=== PATIENT | male | born 1980 | race Caucasian/White ===

== ENCOUNTER → 2020-05-21 | Outpatient (CLI) | payer BC | LOC: LAB 11:45 | PROVIDERS: ATTEND Physician Assistant | DX: Z76.89 Persons encountering health services in other specified circumstances (principal); Z11.59 Encounter for screening for other viral diseases ==

== ENCOUNTER 2023-07-09 01:37 | Outpatient (CLI) | payer BC | END 2023-07-09 01:38 | disposition critical access hospital (66) | LOC: EMS 01:37 | DX: S49.91XA Unspecified injury of right shoulder and upper arm, initial encounter (principal); R07.89 Other chest pain; S80.211A Abrasion, right knee, initial encounter; V20.49XA Other motorcycle driver injured in collision with pedestrian or animal in traffic accident, initial encounter; Y92.414 Local residential or business street as the place of occurrence of the external cause | CPT/HCPCS: A0425; A0429 ==

== ENCOUNTER 2023-07-09 02:02 | Emergency (ER) | payer BC ==
[2023-07-09] MEDS ORDERED: BACITRACIN ZINC OINT 1 PACKET TOP STA (02:08)
[2023-07-09] MEDS ORDERED: TETANUS/DIPHTHERIA/PERTUSSIS 0.5 ML SYRINGE IM ONE (02:08)
[2023-07-09] MEDS ORDERED: KETOROLAC 30 MG/ML VIAL IM STA (02:09)
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
[2023-07-09 03:28] VITALS: BP 168/100; O2SAT 96
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
== END 2023-07-09 03:27 | disposition home or self-care (01) ==
LOC: EDUNIT# → ED 02:02
DX: M25.511 Pain in right shoulder (principal); V20.49XA Other motorcycle driver injured in collision with pedestrian or animal in traffic accident, initial encounter; Y92.410 Unspecified street and highway as the place of occurrence of the external cause; Z23 Encounter for immunization
CPT/HCPCS: 73030; 90471; 90715; 96372; 99283; A9270